=== PATIENT | male | born 1945 | race Caucasian/White ===

== ENCOUNTER 2016-10-25 18:37 | Observation (INO) | payer MEDICARE, OTHER ==
[2016-10-25] MEDS ORDERED: NITROGLYCERIN OINT 1 INCH/GM PACKET TOPICAL STA (19:03)
[2016-10-25] MEDS ORDERED: ASPIRIN 81 MG CHEW PO STA (19:03)
[2016-10-25] MEDS ORDERED: MORPHINE SULFATE 2 MG/ML SYRINGE IVP STA (19:03)
[2016-10-25 19:22] LABS: Basophils # (A) 0.1 k/uL (0-0.2); Basophils % (A) 1 %; CHCM 33.2; Eosinophils % (A) 0 %; HCT 43.8 % (39.0-53.0); HDW 2.06; HGB 14.3 gm/dL (13.0-17.5); Luc # (Auto) 0.19; Luc % (Auto) 2; Lymphocytes # (A) 2.2 k/uL (1.0-4.8); Lymphocytes % (A) 21 %; MCH 31.7 pg (25.0-35.0); MCHC 32.7 g/dL (31.0-37.0); Monocytes # (A) 0.7 k/uL (0-1.0); Monocytes % (A) 7 %; Neutrophils # (A) 7.3 k/uL (1.3-7.7); Neutrophils % (A) 70 %; RBC 4.51 m/uL (4.30-5.90); RDW 13.2 % (11.5-15.5); WBC 10.4 k/uL (3.8-10.6)
--- NOTE | 2016-10-25 19:27 | XR ---
EXAMINATION TYPE: XR chest 2V DATE OF EXAM: 10/25/2016 7:23 PM COMPARISON: NONE HISTORY: Chest pain TECHNIQUE: Frontal and lateral views of the chest are obtained. FINDINGS: There is no heart failure nor confluent pneumonic infiltrate. There is slight blunting of left costophrenic angle. There is a slight thoracic kyphotic curvature. There are no hilar masses. He art size is normal. IMPRESSION: Pleural diaphragmatic scarring at the left lung base. Normal heart. No pulmonary consoli dation.
[2016-10-25 19:34] LABS: ALT 27 U/L (21-72); AST 32 U/L (17-59); Alkaline Phosphatase 87 U/L (38-126); Anion Gap 11 mmol/L; Blood Urea Nitrogen 12 mg/dL (9-20); Calcium 9.5 mg/dL (8.4-10.2); Carbon Dioxide 26 mmol/L (22-30); Chloride 101 mmol/L (98-107); Glucose 94 mg/dL (74-99); Magnesium 2.2 mg/dL (1.6-2.3); Non-African American GFR(MDRD) >60 (>60 ml/min/1.73 sqM); Potassium 4.3 mmol/L (3.5-5.1); Sodium 138 mmol/L (137-145); Total Bilirubin 0.9 mg/dL (0.2-1.3); Total Protein 7.8 g/dL (6.3-8.2)
[2016-10-25 19:41] LABS: Partial Thromboplastin Time 23.2 sec (22.0-30.0); Prothrombin Time 9.9 sec (9.0-12.0)
[2016-10-25 19:54] LABS: Creatine Kinase 103 U/L (55-170)
[2016-10-25 20:06] LABS: Creatine Kinase MB 1.2 ng/mL (0.0-2.4); Troponin I <0.012 ng/mL (0.000-0.034)
[2016-10-25] MEDS ORDERED: NITROGLYCERIN SL TABS 0.4 MG TAB SUBLINGUAL PRN (20:55)
[2016-10-25] MEDS ORDERED: HEPARIN SODIUM,PORCINE 5,000 UNIT/ML 1 ML VIAL IV ONE (20:55)
[2016-10-25] MEDS ORDERED: HEPARIN SODIUM,PORCINE 5,000 UNIT/ML 1 ML VIAL IV PRN (20:55)
--- NOTE | 2016-10-25 20:55 | ED ---
Chest Pain HPI - General Chief Complaint: Chest Pain Stated Complaint: Chest Pain Time Seen by Provider: 10/25/16 18:56 Source: patient Mode of arrival: ambulatory Limitations: no limitations - History of Present Illness Initial Comments: This 71-year-old white male presents with a complaint of some midsternal chest pain. Feels like somebody punched him in the chest. It started this morning. It is nonpleuritic in nature. He denies any known previous cardiac disease. He 's never had a stress test or heart catheterization. He denies any leg pain or swelling or history of DVT or PE. No other complaints or modifying factors. - Related Data Home Medications Medication Instructions Recorded Confirmed Aspirin 81 mg PO DAILY 01/13/16 10/25/16 Allergies Allergy/AdvReac Type Severity Reaction Status Date / Time No Known Allergies Allergy Verified 10/25/16 19:13 Review of Systems ROS Statement: Those systems with pertinent positive or pertinent negative responses have been documented in the HPI. ROS Other: All systems not noted in ROS Statement are negative. Past Medical History Additional Past Medical History / Comment(s): past hx. colon polyps History of Any Multi-Drug Resistant Organisms: None Reported Past Surgical History: Orthopedic Surgery Additional Past Surgical History / Comment(s): ORIF left hip, colonoscopies Past Anesthesia/Blood Transfusion Reactions: No Reported Reaction Past Psychological History: No Psychological Hx Reported Smoking Status: Never smoker Past Alcohol Use History: Daily Additional Past Alcohol Use History / Comment(s): couple or more per day Past Drug Use History: None Reported - Past Family History Father Family Medical History: Cancer Additional Family Medical History / Comment(s): colon General Exam - General Exam Comments Initial Comments: GENERAL: The patient is well nourished and well hydrated. VITAL SIGNS: Heart rate, blood pressure, respiratory rate reviewed as recorded in nurse's notes. EYES: Pupils are round and reactive. Extraocular movements are intact. No conjunctival / lid redness or swelling. ENT: No external evidence of injury, swelling, or ecchymosis. Airway is patent. Throat is clear. NECK: Nontender. No swelling or evidence of injury. No subcutaneous emphysema. Trachea is midline. No thyroid mass. HEART: Regular rate and rhythm. Good peripheral pulses. LUNGS/CHEST: Breath sounds clear and equal bilaterally. No rales, rhonchi, or wheezes. No ecchymosis, subcutaneous emphysema, or tenderness. ABDOMEN: Abdomen soft without tenderness. No palpable masses or organomegaly. No peritoneal signs. No abdominal wall swelling or ecchymosis. EXTREMITIES: No extremity tenderness. Normal muscle tone and function. No thoracolumbar tenderness. NEUROLOGIC: Sensation is grossly intact. Cranial nerve exam reveals face is symmetrical, tongue is midline, speech is clear. SKIN: No abrasions or ecchymosis is noted. No induration or masses noted. PSYCHIATRIC: Alert and oriented. Appropriate behavior and judgment. Limitations: no limitations Course Vital Signs 10/25/16 10/25/16 10/25/16 18:38 18:49 19:13 Temperature 98.9 F Pulse Rate 97 93 87 Respiratory 18 18 18 Rate Blood Pressure 136/72 121/75 118/61 O2 Sat by Pulse 96 98 97 Oximetry 10/25/16 10/25/16 20:00 20:36 Temperature 98.7 F Pulse Rate 90 86 Respiratory 18 18 Rate Blood Pressure 124/70 124/67 O2 Sat by Pulse 96 97 Oximetry Chest Pain [facility] The patient was seen and examined. All diagnostics were reviewed. An EKG was done which shows a normal sinus rhythm at a rate of 81. There is no acute ST-T wave changes noted. The DC interval is 140, QRS duration is 88, and QTC intervals 429. The chest x-ray shows some scarring at the left base. No acute processes otherwise noted per radiology. The cardiac profile labs are all essentially within normal limits. The possibility of acute coronary syndrome certainly is possible and is felt as though patient would benefit from admission to the hospital for further Cardiologic workup. He is agreeable. Case is discussed with internal medicine and patient is admitted for further treatment. Disposition Clinical Impression: Chest pain, Unstable angina pectoris Disposition: ADMITTED IP TO THIS [facility] Condition: Fair Time of Disposition: 20:55 Decision Date: 10/25/16 Decision Time: 20:55
[2016-10-25] MEDS ORDERED: HEPARIN SODIUM,PORCINE/D5W PMX 25,000 UNIT in DEXTROSE/WATER 1 500ML.BAG IV SCH (21:00)
[2016-10-25 23:29] VITALS: RESP 16
[2016-10-26 02:42] LABS: Creatine Kinase 66 U/L (55-170)
[2016-10-26 02:56] LABS: Creatine Kinase MB 0.7 ng/mL (0.0-2.4); Troponin I <0.012 ng/mL (0.000-0.034)
[2016-10-26 07:04] LABS: Cholesterol 178 mg/dL (<200); Triglycerides 45 mg/dL (<150)
[2016-10-26 07:09] LABS: Creatine Kinase 61 U/L (55-170)
[2016-10-26 07:11] LABS: HDL Cholesterol 119 mg/dL (40-60)
[2016-10-26 07:23] LABS: Creatine Kinase MB 0.6 ng/mL (0.0-2.4); Troponin I <0.012 ng/mL (0.000-0.034)
[2016-10-26] MEDS ORDERED: ASPIRIN 325 MG TAB PO SCH (09:00)
--- NOTE | 2016-10-26 10:10 | ECHOF ---
Referral Reason:cp MEASUREMENTS -------- HEIGHT: 182.9 cm WEIGHT: 95.3 kg BP: 116/70 IVSd: 1.2 cm (0.6 - 1.1) LVIDd: 3.4 cm (3.9 - 5.3) LVPWd: 1.1 cm (0.6 - 1.1) IVSs: 1.4 cm LVIDs: 2.2 cm LVPWs: 1.5 cm Ao Diam: 3.4 cm (2.0 - 3.7) AV Cusp: 1.6 cm (1.5 - 2.6) LA Diam: 2.8 cm (2.7 - 3.8) MV EXCURSION: 14.577 mm (> 18.000) MV EF SLOPE: 124 mm/s (70 - 150) EPSS: 2.1 cm MV E Massimo: 1.06 m/s MV DecT: 228 ms MV A Massimo: 0.80 m/s MV E/A Ratio: 1.32 RAP: 5.00 mmHg RVSP: 11.07 mmHg FINDINGS -------- Sinus rhythm. This was a technically good study. There is mild concentric left ventricular hypertrophy. Overall left ventricular systolic function is normal with, an EF between 55 - 60 %. The right ventricle is normal in size and function. The left atrium is normal in size. The right atrium is normal in size. The aortic valve is trileaflet, and appears structurally normal. No aortic stenosis or regurgitation. The mitral valve leaflets are mildly thickened. Mild mitral regurgitation is present. Mild tricuspid regurgitation present. The right ventricular systolic pressure, as measured by Doppler, is 11.07mmHg. Pulmonic valve appears structurally normal. The aortic root size is normal. The pericardium is normal. CONCLUSIONS -------- 1. Sinus rhythm. 2. Mild mitral regurgitation is present. 3. Mild tricuspid regurgitation present. 4. The right ventricular systolic pressure, as measured by Doppler, is 11.07mmHg. 5. Pulmonic valve appears structurally normal. 6. The aortic root size is normal. 7. The pericardium is normal. 8. This was a technically good study. 9. There is mild concentric left ventricular hypertrophy. 10. Overall left ventricular systolic function is normal with, an EF between 55 - 60 %. 11. The right ventricle is normal in size and function. 12. The left atrium is normal in size. 13. The right atrium is normal in size. 14. The aortic valve is trileaflet, and appears structurally normal. No aortic stenosis or regurgitation. 15. The mitral valve leaflets are mildly thickened. RENTAL SALESPERSON: Roslyn Clark RDCS
--- NOTE | 2016-10-26 11:06 | P.CRDCN ---
History of Present Illness Consult date: 10/26/16 Requesting physician: Magen Orantes Consult reason: chest pain Chief complaint: Chest pain History of present illness: This is a 71-year-old gentleman with no documented history of hypertension, no diabetes, no hyperlipidemia, nonsmoker. He does drink beer occasionally. He presents to the hospital with symptoms of mid sternal chest pressure. According to the patient, yesterday morning he noticed a pressure in the center of his chest. He states he has been getting these symptoms off and on, at times, when they last longer the pain radiates across the chest and at times up into his jaw. He does get mild associated shortness of breath. For the most part, patient states that the symptoms never last longer than approximately 10 minutes and then dissipate. They come with or without exertion. Yesterday morning because the symptoms lasted longer than his usual he came to the emergency room for further evaluation. Patient is quite physically active without having any significant symptoms related to exertion. Chest x-ray on admission reveals pleural diaphragmatic scarring at the left lung base. EKG on admission shows a normal sinus rhythm with ST changes suggestive of early repolarization. Blood pressure on arrival 136/70 with a heart rate in the 90s. CBC normal, d-dimer 0.50, potassium 4.3, BUN 12, creatinine 0.8. Troponins have been negative 3, BNP level 268. Cholesterol 178, triglycerides 45, LDL 50, HDL 119. Blood pressure 124/60 with heart rate in the 80s. 97% on 2 L of oxygen. Past Medical History Additional Past Medical History / Comment(s): past hx. colon polyps History of Any Multi-Drug Resistant Organisms: None Reported Past Surgical History: Orthopedic Surgery Additional Past Surgical History / Comment(s): ORIF left hip, colonoscopies Past Anesthesia/Blood Transfusion Reactions: No Reported Reaction Past Psychological History: No Psychological Hx Reported Smoking Status: Never smoker Past Alcohol Use History: Daily Additional Past Alcohol Use History / Comment(s): couple per day Past Drug Use History: None Reported - Past Family History Father Family Medical History: Cancer Additional Family Medical History / Comment(s): colon Medications and Allergies Home Medications Medication Instructions Recorded Confirmed Type Aspirin 81 mg PO DAILY 01/13/16 10/25/16 History Allergies Allergy/AdvReac Type Severity Reaction Status Date / Time No Known Allergies Allergy Verified 10/25/16 19:13 Physical Exam Vitals: Vital Signs Temp Pulse Pulse Resp BP BP Pulse Ox 10/26/16 08:00 84 16 10/26/16 06:59 98.3 F 84 16 116/70 96 10/26/16 04:00 16 10/26/16 03:32 98.7 F 78 16 113/60 97 10/26/16 00:00 98.3 F 78 16 134/69 95 10/25/16 23:26 78 16 129/76 98 10/25/16 22:30 78 16 114/69 96 10/25/16 21:30 90 18 104/63 97 Intake and Output 10/25/16 10/26/16 10/26/16 22:59 06:59 14:59 Intake Total 356 Balance 356 Intake: IV 40 0.9@20 20 Heparin Sodium,Porcine/ 20 D5w Pmx 25,000 unit In Dextrose/Water 1 500ml. bag @ 10.5 UNITS/KG/HR 20 mls/hr IV .Q24H DEVANG Rx#: [id number] Intake, IV Titration 116 Amount Heparin Sodium,Porcine/ 116 D5w Pmx 25,000 unit In Dextrose/Water 1 500ml. bag @ 10.5 UNITS/KG/HR 20 mls/hr IV .Q24H DEVANG Rx#: [id number] Oral 200 Other: Voiding Method Toilet Toilet # Voids 1 1 PHYSICAL EXAMINATION: HEENT: Head is atraumatic, normocephalic. Pupils equal, round. Neck is supple. There is no elevated jugular venous pressure. HEART EXAMINATION: Heart S1, S2 normal. No murmur or gallop heard. CHEST EXAMINATION: Lungs are clear to auscultation and precussion. No chest wall tenderness is noted on palpation or with deep breathing. ABDOMEN: Soft, nontender. Bowel sounds are heard. No organomegaly noted. EXTREMITIES: 2+ peripheral pulses with no evidence of peripheral edema and no calf tenderness noted. NEUROLOGIC patient is awake, alert and oriented -3. . Results 10/26/16 06:23 10/25/16 18:50 Cardiac Enzymes 10/26/16 10/26/16 Range/Units 01:56 06:23 CK-MB (CK-2) 0.7 0.6 (0.0-2.4) ng/mL Troponin I <0.012 <0.012 (0.000-0.034) ng/mL Coagulation 10/26/16 10/26/16 Range/Units 01:56 09:18 APTT 40.8 H 46.9 H (22.0-30.0) sec Lipids 10/26/16 Range/Units 06:23 Triglycerides 45 (<150) mg/dL Cholesterol 178 (<200) mg/dL HDL Cholesterol 119 H (40-60) mg/dL CBC 10/26/16 Range/Units 06:23 Plt Count 214 (150-450) k/uL Current Medications Generic Name Dose Route Start Last Admin Trade Name Freq PRN Reason Stop Dose Admin Aspirin 325 mg 10/26/16 09:00 10/26/16 10:06 Aspirin PO 325 mg DAILY DEVANG Administration Heparin Sodium (Porcine) 0 unit 10/25/16 20:55 10/26/16 03:04 Heparin IV 2,375 unit Q6HR PRN Administration Low PTT Protocol Heparin Sodium/Dextrose 25,000 500 mls @ 20 mls/hr 10/25/16 21:00 10/26/16 03 :06 unit/ IV Solution IV 12.5 units/kg/hr .Q24H DEVANG 23.81 mls/hr Protocol Titration 10.5 UNITS/KG/HR Nitroglycerin 0.4 mg 10/25/16 20:55 Nitrostat SUBLINGUAL Q5M PRN Chest Pain Intake and Output 10/25/16 10/26/16 10/26/16 22:59 06:59 14:59 Intake Total 356 Balance 356 Intake: IV 40 0.9@20 20 Heparin Sodium,Porcine/ 20 D5w Pmx 25,000 unit In Dextrose/Water 1 500ml. bag @ 10.5 UNITS/KG/HR 20 mls/hr IV .Q24H DEVANG Rx#: [id number] Intake, IV Titration 116 Amount Heparin Sodium,Porcine/ 116 D5w Pmx 25,000 unit In Dextrose/Water 1 500ml. bag @ 10.5 UNITS/KG/HR 20 mls/hr IV .Q24H DEVANG Rx#: [id number] Oral 200 Other: Voiding Method Toilet Toilet # Voids 1 1 10/26/16 06:23 EKG Interpretations (text) EKG shows normal sinus rhythm with evidence of early repolarization. Assessment and Plan Plan: Assessment and plan #1 chest discomfort, with features suggestive of unstable angina. EKG shows normal sinus rhythm with ST changes suggestive of early repolarization. Troponins have been negative 3. #2 cardiac risk factors negative for hypertension, no diabetes, no hyperlipidemia, patient is a nonsmoker. Plan We will obtain an echocardiogram with Doppler study. Discontinue IV heparin. Discontinue Nitropaste. Patient's been advised to undergo a stress test today. If the stress test and echo, abnormal patient may be discharged cardiology's perspective, if the stress test is positive further recommendations then will be made. DNP note has been reviewed, I agree with a documented findings and plan of care. Patient was seen and examined.
--- NOTE | 2016-10-26 14:28 | ECHOS ---
DATE OF SERVICE: 10/26/2016 AGE: 71Y SEX: M HT: 71" WT: 210 lbs. Protocol Frederick: X Others: Stress Echo Stage: 2 Dur. of Exercise: 5:00 *Heart Rate Blood Pressure *Rest: 94 Rest: 129/48 * *Max. Achieved: 140 Maximum BP: 152/53 85% PMHR: 127 100% PMHR: 149 *METS: - INDICATIONS: Chest pain. MEDICATIONS: Baby aspirin. Patient was exercised for a total period of 5 minutes. The peak heart rate of 140 was achieved. Maximum blood pressure of 152/53 mmHg was noted. Resting EKG shows normal sinus rhythm with normal WA interval and QRS duration and normal ST-T waves. No ST segment depression suggestive of ischemia was noted. Occasional PACs and PVCs were noted. The baseline echocardiographic images reveal a normal left ventricular chamber size with normal left ventricular systolic function. In the immediate postexercise period, normal increase in the wall thickness and contractility is noted. FINAL IMPRESSION: 1. This stress echocardiographic study is negative for stress-induced ischemia. 2. EKG portion of the stress test is not suggestive of ischemia. 3. Patient has occasional premature atrial contractions and premature ventricular contractions.
[2016-10-26 15:24] VITALS: BP 141/68; PULSE 99; TEMP 98.1
--- NOTE | 2016-10-26 15:56 | HP ---
H&P and DISCHARGE SUMMARY DATE OF ADMISSION: 10/25/2016 This patient is a 71-year-old gentleman with no known history of diabetes mellitus, hypertension or hyperlipidemia. He came in with complaints of chest pain, pressure-like sensation, about 7/10 in severity; lasted all day, because of which patient came to ER. Patient's chest pain is non-pleuritic in nature, non-exertional; actually exertion makes it better. It is non-pleuritic in nature, not associated with food. Patient denied any lightheadedness. Denied any palpation. Patient underwent stress test which was negative. Patient's EKG and troponin did not show any significant abnormality. Patient is cleared by Cardiology. Patient will be discharged today. ROS: All other systems were reviewed and were negative. PAST MEDICAL HISTORY: Colonic polyps in the past. Orthopedic surgery in the past. SOCIAL HISTORY: Denied any smoking, alcohol abuse or any drug abuse. FAMILY HISTORY: Significant for father with colon cancer. Denied any significant family history of coronary artery disease. Home medications include aspirin. ALLERGIES: NO KNOWN DRUG ALLERGIES. PHYSICAL EXAMINATION: VITAL SIGNS: Temperature 98.5, pulse of 84, respiratory rate of 16. Blood pressure is 120/70. Saturating at 95% on 2 L of oxygen by nasal cannula. GENERAL: The patient is alert and oriented x3, not in any acute distress. Well developed, well nourished. HEENT: Pupils are round and equally reacting to light. EOMI. No scleral icterus. No conjunctival pallor. Normocephalic, atraumatic. No pharyngeal erythema. No thyromegaly. CARDIOVASCULAR: As described in HPI. PULMONARY: Chest is clear to auscultation, no wheezing or crackles. ABDOMEN: Soft, nontender, nondistended, normoactive bowel sounds. No palpable organomegaly. MUSCULOSKELETAL: No joint swelling or deformity. EXTREMITIES: No cyanosis, clubbing, or pedal edema. NEUROLOGICAL: Gross neurological examination did not reveal any focal deficits. SKIN: No rashes. LABORATORY DATA: CBC, CMP are essentially within normal limits. D-dimer within normal limits. Chest x-ray did not show any significant abnormality. ASSESSMENT AND PLAN: Chest pain; rule out acute coronary artery syndrome and unstable angina. I am not sure of the etiology of chest pain. Patient's chest pain has resolved at this point of time. No further intervention. Stress test was negative. Patient will be discharged today in stable medical condition to home. Patient will follow with Dr. James Mackey in 3 to 7 days. Activity as tolerated. Regular diet. This dictation is both H&P and discharge summary. [facility]
== END 2016-10-26 15:45 | disposition home or self-care (01) ==
LOC: EC 18:37 → 3OBS 20:55 → 3SUR 22:38 → 3OBS 10-26 07:39
PROVIDERS: ADMIT Internal Medicine; ATTEND Internal Medicine
DX: R07.89 Other chest pain (principal); R06.02 Shortness of breath; Z79.82 Long term (current) use of aspirin; Z86.010 Personal history of colon polyps
CPT/HCPCS: 96376 ×3; 96366 ×3; 93005 ×2; 96365; 96375; 99285; 36415; 93017; 93306; 85379; 83880; 80061; 80053; 82550 ×2; 82553 ×2; 83735; 84484 ×2; 85025; 85049; 85610; 85730 ×2; 71020; G0378 ×3; C8928; J1644 ×3; J2270; Q9957; 93350

== ENCOUNTER → 2017-12-06 | Outpatient (CLI) | payer MEDICARE, OTHER ==
[2017-12-06 12:03] LABS: HCT 44.1 % (39.0-53.0); HGB 14.2 gm/dL (13.0-17.5); MCH 30.7 pg (25.0-35.0); MCHC 32.1 g/dL (31.0-37.0); MCV 95.6 fL (80.0-100.0); Mean Platelet Volume 7.1; Platelet Count 249 k/uL (150-450); RBC 4.62 m/uL (4.30-5.90); RDW 13.2 % (11.5-15.5); WBC 6.4 k/uL (3.8-10.6)
[2017-12-06 12:24] LABS: ALT 26 U/L (21-72); AST 35 U/L (17-59); Albumin 4.4 g/dL (3.5-5.0); Alkaline Phosphatase 98 U/L (38-126); Anion Gap 13 mmol/L; Blood Urea Nitrogen 19 mg/dL (9-20); Calcium 9.9 mg/dL (8.4-10.2); Carbon Dioxide 29 mmol/L (22-30); Chloride 100 mmol/L (98-107); Cholesterol 214 mg/dL (<200); Glucose 93 mg/dL (74-99); Potassium 4.7 mmol/L (3.5-5.1); Sodium 142 mmol/L (137-145); Total Bilirubin 0.7 mg/dL (0.2-1.3); Total Protein 7.8 g/dL (6.3-8.2); Triglycerides 47 mg/dL (<150)
[2017-12-06 12:25] LABS: Appearance,Urine Clear (Clear); Bilirubin,Urine Negative (Negative); Blood,Urine Negative (Negative); Color,Urine Yellow; Glucose,Urine (UA) Negative (Negative); Ketones,Urine Negative (Negative); Leukocyte Esterase,Urine Negative (Negative); Nitrite,Urine Negative (Negative); PH, Urine 6.5 (5.0-8.0); Protein,Urine Negative (Negative); Specific Gravity,Urine 1.015 (1.001-1.035); Urobilinogen,Urine <2.0 mg/dL (<2.0)
[2017-12-06 12:31] LABS: LDL Cholesterol,Calculated 60 mg/dL (0-99)
[2017-12-06 12:38] LABS: HDL Cholesterol 145 mg/dL (40-60)
[2017-12-06 12:54] LABS: Prostate Specific Antigen 1.31 ng/mL (0.00-4.00)
== END | disposition home or self-care (01) ==
LOC: LABWHC1 11:36
PROVIDERS: ATTEND Family Medicine
DX: Z00.01 Encounter for general adult medical examination with abnormal findings (principal); N40.1 Benign prostatic hyperplasia with lower urinary tract symptoms; R53.83 Other fatigue
CPT/HCPCS: 36415; 80053; 80061; 81003; 84153; 85027

== ENCOUNTER 2021-12-31 08:15 | Day surgery (SDC) | payer MEDICARE, OTHER ==
[2021-12-30 11:31] VITALS: BMI 27.8
--- NOTE | 2021-12-31 08:13 | P.GSHP ---
History of Present Illness H&P Date: 12/31/21 CHIEF COMPLAINT: Colon screen HISTORY OF PRESENT ILLNESS: The patient is a 76-year-old male who presents for colon screen. Lower endoscopy was offered for further evaluation and management. PAST MEDICAL HISTORY: Please see list. PAST SURGICAL HISTORY: Please see list. MEDICATIONS: Please see list. ALLERGIES: Please see list. SOCIAL HISTORY: No illicit drug use FAMILY HISTORY: No reports of Crohn disease or ulcerative colitis. REVIEW OF ORGAN SYSTEMS: CONSTITUTIONAL: No reports of fevers or chills. PHYSICAL EXAM: VITAL SIGNS: Stable GENERAL: Well-developed pleasant in no acute distress. HEENT: No scleral icterus. Extraocular movements grossly intact. Moist buccal mucosa. NECK: Supple without lymphadenopathy. CHEST: Unlabored respirations. Equal bilateral excursions. CARDIOVASCULAR: Regular rate and rhythm. Distal 2+ pulses. ABDOMEN: Soft, nontender, nondistended. MUSCULOSKELETAL: No clubbing, cyanosis, or edema. ASSESSMENT: 1. Colon screen. PLAN: 1. Recommend proceeding with a lower endoscopy Past Medical History Past Medical History: Pneumonia, Pulmonary Embolus (PE) Additional Past Medical History / Comment(s): past hx. colon polyps, Covid Aug 2021 and had pneumonia developed PEs History of Any Multi-Drug Resistant Organisms: None Reported Past Surgical History: Orthopedic Surgery Additional Past Surgical History / Comment(s): ORIF left hip, colonoscopies Past Anesthesia/Blood Transfusion Reactions: No Reported Reaction Smoking Status: Never smoker - Past Family History Father Family Medical History: Cancer Additional Family Medical History / Comment(s): "had a bladder bag of some sort" Medications and Allergies Home Medications Medication Instructions Recorded Confirmed Type Warfarin [Coumadin] 5 mg PO DAILY 12/30/21 12/30/21 History Allergies Allergy/AdvReac Type Severity Reaction Status Date / Time No Known Allergies Allergy Verified 12/30/21 11:09
[~2021-12-31 08:15] MED LIST: LACTATED RINGERS 1,000 ML IV SCH
[2021-12-31 08:33] VITALS: RESP 16; TEMP 97.1
[2021-12-31] MEDS ORDERED: LIDOCAINE 1% (10MG/ML) FOR IV START INTRADERMA ONE (08:35)
[2021-12-31] MEDS ORDERED: PROPOFOL 10 MG/ML 20 ML VIAL IV ONE (09:45)
--- NOTE | 2021-12-31 10:16 | P.PCN ---
Date of Procedure: 12/31/21 Description of Procedure: PREOPERATIVE DIAGNOSIS: History of colon polyps Colonoscopy screening. Family history gastrointestinal cancer POSTOPERATIVE DIAGNOSIS: Colonoscopy screening. Sigmoid diverticulosis OPERATION: Colonoscopy to the cecum, ileocecal valve and appendiceal orifice. SURGEON: Maryuri Lobo MD. ANESTHESIA: MAC. INDICATIONS: The patient is a 76-year-old female who presents for colonoscopy screening. Benefits and risks were described and informed consent was obtained. DESCRIPTION OF PROCEDURE: The patient had undergone Sutab prep. The patient had been brought into the operating room and laid in the left lateral decubitus position. After adequate intravenous sedation, the rectum was examined with 2% lidocaine jelly. The prostate was unremarkable. No external hemorrhoids were encountered. The rectal tone was within normal limits. No lesions were palpated in the rectal vault. An Olympus colonoscope was advanced until the cecum, ileocecal valve and appendiceal orifice were clearly viewed. The prep was excellent. Sigmoid diverticulosis was encountered. No colonic polyps were found. No evidence of focal colitis was found. Retroflexion of the scope demonstrated grade 1 internal hemorrhoids without active bleeding or inflammation. The colon was desufflated. The patient had tolerated the procedure well. Withdrawal time was over 6 minutes. FINDINGS: Aronchick preparation quality scale 1 (1-5) Internal hemorrhoids, grade 1 No external prolapsed hemorrhoids. No arteriovenous malformations. No adenomatous polyps. No focal colitis. Sigmoid diverticulosis RECOMMENDATIONS: Lower endoscopy in 2026 or Cologaurd Plan - Discharge Summary Discharge Rx Participant: No New Discharge Prescriptions: Continue Warfarin [Coumadin] 5 mg PO DAILY Discharge Medication List Warfarin [Coumadin] 5 mg PO DAILY 12/30/21 [History] Follow up Appointment(s)/Referral(s): Maryuri Lobo MD [STAFF PHYSICIAN] - As Needed Patient Instructions/Handouts: Diverticulosis Diet (GEN), Diverticulosis (ED), *Surgery [facility] - (Anesthesia) Endoscopy Discharge Instructions Activity/Diet/Wound Care/Special Instructions: Repeat colonoscopy in 2026 or Cologaurd Discharge Disposition: HOME SELF-CARE
[2021-12-31 10:29] VITALS: BP 124/68; PULSE 64
== END 2021-12-31 11:24 | disposition home or self-care (01) ==
LOC: ORWHC2ENDO 08:15
PROVIDERS: ATTEND Surgery Plastic and Reconstructive Surgery
DX: Z12.11 Encounter for screening for malignant neoplasm of colon (principal); K57.30 Diverticulosis of large intestine without perforation or abscess without bleeding; Z79.01 Long term (current) use of anticoagulants; Z80.0 Family history of malignant neoplasm of digestive organs; Z86.16 Personal history of COVID-19; Z86.711 Personal history of pulmonary embolism; Z86.010 Personal history of colon polyps
CPT/HCPCS: 45378; J2704